=== PATIENT | male | born 1980 | race Caucasian/White ===

== ENCOUNTER 2024-06-10 09:38 | Emergency (ER) | payer OTHER, SELFPAY ==
[2024-06-10] VITALS (7 sets, daily range): BP systolic 143–195; BP diastolic 86–115; PULSE 97–108; RESP 10–26; TEMP 36.8; O2SAT 93–98
[2024-06-10 10:10] LABS: Glucose Point of Care 264 mg/dl (65-105)
--- NOTE | 2024-06-10 12:23 | ECG_ITS ---
Test Date: 2024-06-10 12:50:26 Measurements Intervals [place] Rate: 100 P: 43 TN: 135 QRS: -6 QRSD: 115 T: 54 QT: 362 QTc: 468 Interpretive Statements SINUS TACHYCARDIA POSSIBLE LEFT ATRIAL ENLARGEMENT [-0.1mV P-WAVE IN V1/V2] ANTEROSEPTAL MYOCARDIAL INFARCTION , OF INDETERMINATE AGE [40+ ms Q WAVE IN V1-V4] No previous ECG available for comparison Electronically Signed On 06-10-2024 18:45:04 [employer] by Ezequiel Keller M.D.
[2024-06-10] MEDS: ONDANSETRON INJ 4 MG/2 ML VIAL IV PUSH (12:29)
[2024-06-10] MEDS: SODIUM CHLORIDE 0.9% IV 1,000 ML 999 ML IV CONT (12:29)
[2024-06-10 12:33] LABS: Basophils Percent Auto 0.6 % (0.2-1.2); Eosinophils Percent Auto 0.3 % (0-4.4); Hematocrit 42.1 % (42.0-52.0); Hemoglobin 14.7 g/dL (14.0-18.0); Immature Granulocyte Absolute 0.01 K/mm3 (0.00-0.031); Immature Granulocyte Percent A 0.3 % (0-0.5); Lymphocytes Percent Auto 30.9 % (18.3-44.2); Mean Corpuscular HGB Conc 34.9 g/dl (32-36); Mean Corpuscular Hemoglobin 35.4 pg (26-34); Mean Corpuscular Volume 101.4 fl (80-100); Mean Platelet Volume 10.1 fl (7.4-10.4); Monocytes Absolute Auto 0.2 K/mm3 (0.1-0.6); Monocytes Percent Auto 4.9 % (2.6-8.5); Platelet Count Result 125 k/mm3 (150-375); Red Blood Count 4.15 M/mm3 (4.6-6.20); Red Cell Distribution Width 14.6 % (11.5-14.5); White Blood Count 3.2 K/mm3 (4.5-10.0)
[2024-06-10 12:42] LABS: Ethanol 278 mg/dL (<10)
[2024-06-10 12:42] LABS: Add Urine Microscopic? YES; Appearance Urine Clear (Clear); Bacteria Urine None Seen /hpf; Bilirubin Urine Negative (Negative); Blood Urine Negative (Negative); Color Urine Yellow (Yellow); Glucose Urine UA Negative (Negative); Ketones Urine 1+ mg/dL (Negative); Leukocyte Esterase Ur Negative LEU/UL (Negative); Nitrate Urine Negative (Negative); Non Pathogenic Casts 0-2; Protein Urine 3+ mg/dL (Negative); RBC Urine 0-2 /hpf (0-2); Specific Grav Ur 1.019 (1.001-1.035); Squamous Epithelial Cell Urine None Seen /hpf (Few); WBC Urine 0-5 /hpf (0-3)
[2024-06-10 12:43] LABS: Alanine Aminotransferase 279 U/L (6-50); Albumin Level 5.3 g/dL (3.5-5.1); Alkaline Phosphatase 90 U/L (38-126); Anion Gap 16 mmol/L (4-12); Aspartate Amino Transferase 324 U/L (17-59); Bilirubin,Total 1.6 mg/dL (0.2-1.3); Blood Urea Nitrogen 16 mg/dL (9-20); Calcium 9.5 mg/dL (8.4-10.2); Carbon Dioxide 23 mmol/L (22-30); Chloride 96 mmol/L (98-107); Estimated CRCL calculation 134 ml/min; Estimated Glomerular Filt Rate > 60; Glucose 210 mg/dL (65-110); Potassium 4.1 mmol/L (3.4-5.0); Sodium 135 mmol/L (137-145)
[2024-06-10 12:46] LABS: Lipase 267 U/L (23-300); Phosphorus 3.5 mg/dL (2.5-4.5)
[2024-06-10 12:47] LABS: Prothrombin Time 13.3 Seconds (11.1-14.7)
[2024-06-10 12:56] LABS: Amphetamine Screen Urine Negative (Negative); Barbiturate Screen Urine Negative (Negative); Benzodiazepines Screen Urine Negative (Negative); Cannabinoid Screen Urine Positive (Negative); Cocaine Screen Urine Negative (Negative); Methadone Screen Urine Negative (Negative); Opiate Screen Urine Negative (Negative); Phencyclidine Screen Urine Negative (Negative)
--- OUTSIDE RECORDS SUMMARY | 2024-06-10 13:23 | XMS_ITS | Continuity of Care Document ---
Author Organization [facility] Address [address] [place] [address] [place] [address] Phone Care Team Providers Care Senior Service Technician Name Role Phone Cj Guthrie MD Unavailable Unavailable Allergies, Adverse Reactions, Alerts Substance Reaction Status Criticality No Known Allergies Active No Inform ation Medications Medication Instructions Dosage Effective Dates (start - stop) Status Comments Paxil 20 mg tablet take 1 tablet by oral route every day 20 MG - Active Xanax 0.25 mg tablet take 1 tablet by oral route 2 times every day as needed 0.25 MG - Active PRN for anxiety, avoid driving or operate machines Adderall XR 30 mg capsule,extended release take 1 capsule by oral route every day in the morning upon awakening 30 MG - Active Adderall 30 mg tablet take 1 tablet by oral route around 3 pm - Active Procedures Procedure Date OFFICE/OUTPATIENT VISIT, [facility] Advance Directives Directive Yes / No Effective Date File Name No Information Encounters Encounter Description Practice Location Reason(s) For Visit Diagnoses Date Provider Providers Copied on Encounter OFFICE/OUTPA TIENT VISIT, [facility], [email or web address] [place], [address], tel:[phone] [facility] anxiety1 (chief complaint) ADD (chief complaint) HTN (chief complaint) Essential (primary) hypertensionGeneral ized Anxiety DisorderAttention deficit [address] [place], [address]. tel:[phone] Family History Family Member Type Diagnosis Age At Onset Mother Problem of brain CA 36 Father Problem Afib 72 Brother Problem ADD/ADHD Payers Payer name Insurance type Covered republican ID Chrissy christiansen(s) No Information Social History Type Description Quantity Date Captured Comments Alcohol Use Details beer 2-5 Drinks weekly Caffeine Use Details Unknown Tobacco Use Status Ex-cigarette smoker Smoking Status Current some day smoker Smoking Tobacco Use Details Cigar: Age Started: 36
Cigarette: Age Started: 15, Age Stopped: 36, Years Used 21 Cigar: No Details Available
Cigar ette: 1 Packs per day, Pack Year: 21 Sex Male Vital Signs Date / Time: Height Weight BMI Pulse Rate Blood Pressure Temperature Respiratory Rate Body Surface Area Head Circumference BMI percentile Pulse Ox Inhaled Ox 4:34 PM 73.00 in 212.40 lbs 28.0 2 kg/m eter (2) 73 /min 175/105 mm[Hg] 98.3 F 16 /min Chief Complaint And Reason For Visit From encounter dated '09/01/2022 16:34'. anxiety1 (chief complaint). Description: Pt has chronic anxiety and depression Pt takes paxil and xanax PRN and doing ok Pt denies any suicidal or homicidal thought Pt denies any crying spells ADD (chief complaint). Description: Pt has ADD Pt is seeing doctor in [place] but is too far and he takes adderall XR 30 mg in Am and 30 mg IR around afternoon Pt wants to find a doctor that close to home. Pt also had some verbal altercation with his previous MD regarding issues of adderall refill. Pt states that he was out of town and had some difficulty getting his adderall refilled by his previous MD and he was unhappy about that HTN (chief complaint). Description: Pt has HTN Pt states that his bp is around 130/70 at home Pt denies any chest pain or headache. he states that he has white coat syndrome Plan Of Treatment Date Type Action Status No Information History Of Present Illness Encounter Date Complaint History Of Prese nt Illness HTN Pt has HTN Pt st ates that his bp is around 130/70 at home Pt denies any chest pain or headache. he states that he has white coat syndrome ADD Pt has ADD Pt is seeing doctor in [place] but is too far and he takes adderall XR 30 mg in Am and 30 mg IR around afternoon Pt wants to find a doctor that close to home. Pt also had some verbal altercation with his previous MD regarding issues of adderall refill. Pt states that he was out of town and had some difficulty getting his adderall refilled by his previous MD and he was unhappy about that anxiety1 Pt has chronic a nxiety and depression Pt takes paxil and xanax PRN and doing ok Pt denies any suicidal or homicidal thought Pt denies any crying spells Instructions Date Instruction Additional Infor mation No Information Assessments Type Assessment Date assessment Essential (primary) hypertension assessment Generalized Anxiety Disorder Aug assessment Attention deficit Mental Status Date Cognitive Assessment Orientation - [place] ed to time, place, person, situation.
--- NOTE | 2024-06-10 13:42 | ED_ITS ---
HPI - General Adult General Chief complaint: Alcohol Stated complaint: ETOH and drug use, weakness Time Seen by Provider: 06/10/24 12:08 History of Present Illness HPI narrative: Patient is a 43-year-old male who presents ER for evaluation after feeling weird after drinking alcohol and using drugs. He has been purchasing Adderall off the Internet he reports his mouth today slight Plastic. He reports he had several shots of vodka this morning. Reports in a typical day he will drink a pt of vodka, 1-2 bottles of lying, and then 10-15 malt liquor or [place] drinks. He was vomiting this morning. EMS arrived and blood sugar was low. Patient was able to drink orange juice need a sandwich. Patient reports occasionally he will feel palpitations in his chest but no chest pain. Reports mild anxiety. Family concerned he may be withdrawing. Patient is unable to remember last time he went multiple days without drinking alcohol. Related Data Allergies Allergy/AdvReac Type Severity Reaction Status Date / Time No Known Allergies Allergy Verified 06/10/24 12:02 Review of Systems 2 Review of Systems: All systems reviewed & are unremarkable except as noted in HPI and below Constitutional: Constitutional: Reports no additional constitutional complaints ENT: Reports system reviewed and no additional complaints, except as documented Cardiovascular: Cardiovascular: Reports no additional cardiovascular complaints ( Palpitations) Respiratory: Respiratory: Reports no additional respiratory complaints Psychiatric: Psychiatric: Reports anxiety PMFSH Past Medical History Medical History (Updated 06/10/24 @ 14:27 by Renaldo Rae MD) Depression Anxiety Surgical History Surgical History (Updated 06/10/24 @ 13:46 by Renaldo Rae MD) No pertinent past surgical history Social History Social History (Updated 06/10/24 @ 13:47 by Renaldo Rae MD) Alcohol use details: 1 pint, 1-2 bottles of wine, and 10-15 malt liquor/seltzer cans a day. Exam 2 Narrative: GENERAL: intoxicated-appearing, well-nourished, and in no acute distress. HEAD: Normocephalic, atraumatic. ENT: Mucous membranes moist. CHEST: Clear to auscultation. No respiratory distress. HEART: tachycardic and regular. Normal peripheral pulses. ABDOMEN: Soft, nontender, nondistended. EXTREMITIES: Normal range of motion. No edema. SKIN: Warm, dry, no rash. NEURO: Alert and oriented x3. PSYCH: Normal mood and affect. Course Course Emergency Course: 1357: Patient is wanting to leave the ER. Discussed results including elevated transaminases from alcohol abuse. Troponin is pending. Patient agreeable to wait for troponin to return before he is going to depart. He is becoming a bit anxious. Tachycardia resolved with IV fluid. Patient is intoxicated. 1425: Troponin negative. Early repolarization abnormality on EKG. Received etoh abuse resources. D/c. Vital Signs Vital signs: Vital Signs Temperature 98.2 F 06/10/24 10:09 Pulse Rate 98 06/10/24 10:09 Respiratory Rate 20 06/10/24 10:09 Blood Pressure 149/91 H 06/10/24 10:09 Pulse Oximetry 96 06/10/24 10:09 Oxygen Delivery Room Air 06/10/24 10:09 Temperature 98.2 F 06/10/24 10:09 Pulse Rate 97 06/10/24 13:37 Respiratory Rate 18 06/10/24 13:37 Blood Pressure 143/98 H 06/10/24 13:16 Pulse Oximetry 93 06/10/24 13:37 Oxygen Delivery Room Air 06/10/24 10:09 Medical Decision Making Vital Signs Vital Signs: Vital Signs Temperature 98.2 F 06/10/24 10:09 Pulse Rate 98 06/10/24 10:09 Respiratory Rate 20 06/10/24 10:09 Blood Pressure 149/91 H 06/10/24 10:09 Pulse Oximetry 96 06/10/24 10:09 Oxygen Delivery Room Air 06/10/24 10:09 Temperature 98.2 F 06/10/24 10:09 Pulse Rate 97 06/10/24 13:37 Respiratory Rate 18 06/10/24 13:37 Blood Pressure 143/98 H 06/10/24 13:16 Pulse Oximetry 93 06/10/24 13:37 Oxygen Delivery Room Air 06/10/24 10:09 Lab Data 06/10/24 12:23 06/10/24 12:23 Labs: Lab Results 06/10/24 06/10/24 06/10/24 Range/Units 10:04 12:22 12:23 WBC 3.2 L (4.5-10.0) K/mm3 RBC 4.15 L (4.6-6.20) M/mm3 Hgb 14.7 (14.0-18.0) g/dL Hct 42.1 (42.0-52.0) % MCV 101.4 H (80-100) fl MCH 35.4 H (26-34) pg MCHC 34.9 (32-36) g/dl RDW 14.6 H (11.5-14.5) % Plt Count 125 L (150-375) k/mm3 MPV 10.1 (7.4-10.4) fl Immature Gran % (Auto) 0.3 (0-0.5) % Neut % (Auto) 63.0 (45.5-73.1) % Lymph % (Auto) 30.9 (18.3-44.2) % [place] % (Auto) 4.9 (2.6-8.5) % Eos % (Auto) 0.3 (0-4.4) % Baso % (Auto) 0.6 (0.2-1.2) % Lymph # (Auto) 1.00 (0.9-3.2) K/mm3 [place] # (Auto) 0.2 (0.1-0.6) K/mm3 Eos # (Auto) 0.0 (0-0.3) K/mm3 Baso # (Auto) 0.0 (0.0-0.1) K/mm3 Abs Immat Gran (auto) 0.01 (0.00-0.031) K/mm3 Absolute Neuts (auto) 2.0 (1.3-6.7) K/mm3 Absolute Nucleated RBC 0.000 (0.0-0.012) K/mm3 Nucleated RBC % 0.0 (0.0-0.2) % % Immature Plt Fraction 6.0 (0.9-11.2) % PT 13.3 (11.1-14.7) Seconds INR 1.0 Sodium 135 L (137-145) mmol/L Potassium 4.1 (3.4-5.0) mmol/L Chloride 96 L (98-107) mmol/L Carbon Dioxide 23 (22-30) mmol/L Anion Gap 16 H (4-12) mmol/L BUN 16 (9-20) mg/dL Creatinine 0.80 (0.7-1.3) mg/dL Estim Creat Clear Calc 134 ml/min Estimated GFR > 60 (59 - ) Glucose 210 H (65-110) mg/dL POC Capillary Glucose 264 H (65-105) mg/dl Calcium 9.5 (8.4-10.2) mg/dL Phosphorus (2.5-4.5) mg/dL Magnesium 2.0 (1.6-2.3) mg/dL Total Bilirubin 1.6 H (0.2-1.3) mg/dL AST 324 H (17-59) U/L ALT 279 H (6-50) U/L Alkaline Phosphatase 90 (38-126) U/L Troponin I < 0.012 (0.000-0.034) ng/mL Total Protein 9.0 H (6.3-8.2) g/dL Albumin 5.3 H (3.5-5.1) g/dL Lipase (23-300) U/L Urine Color (Yellow) Urine Appearance (Clear) Urine pH (5.0-9.0) Ur Specific [place] (1.001-1.035) Urine Protein (Negative) mg/dL Urine Glucose (UA) (Negative) mg/dL Urine Ketones (Negative) mg/dL Ur Blood (Man) (Negative) Urine Nitrate (Negative) Urine Bilirubin (Negative) Urine Urobilinogen (<2.0) mg/dL Leukocyte Esterase Rfl (Negative) JEANA/UL Urine RBC (0-2) /hpf Urine WBC (0-3) /hpf Ur Squamous Epith Cells (Few) /hpf Urine Bacteria /hpf Urine Casts Urine Opiates Screen (Negative) Urine Methadone Screen (Negative) Ur Barbiturates Screen (Negative) Ur Phencyclidine Scrn (Negative) Ur Amphetamine Screen (Negative) U Benzodiazepines Scrn (Negative) Urine Cocaine Screen (Negative) U Cannabinoids Screen (Negative) Ethyl Alcohol (<10) mg/dL 06/10/24 06/10/24 Range/Units 12:25 12:27 WBC (4.5-10.0) K/mm3 RBC (4.6-6.20) M/mm3 Hgb (14.0-18.0) g/dL Hct (42.0-52.0) % MCV (80-100) fl MCH (26-34) pg MCHC (32-36) g/dl RDW (11.5-14.5) % Plt Count (150-375) k/mm3 MPV (7.4-10.4) fl Immature Gran % (Auto) (0-0.5) % Neut % (Auto) (45.5-73.1) % Lymph % (Auto) (18.3-44.2) % Benzie % (Auto) (2.6-8.5) % Eos % (Auto) (0-4.4) % Baso % (Auto) (0.2-1.2) % Lymph # (Auto) (0.9-3.2) K/mm3 [place] # (Auto) (0.1-0.6) K/mm3 Eos # (Auto) (0-0.3) K/mm3 Baso # (Auto) (0.0-0.1) K/mm3 Abs Immat Gran (auto) (0.00-0.031) K/mm3 Absolute Neuts (auto) (1.3-6.7) K/mm3 Absolute Nucleated RBC (0.0-0.012) K/mm3 Nucleated RBC % (0.0-0.2) % % Immature Plt Fraction (0.9-11.2) % PT (11.1-14.7) Seconds INR Sodium (137-145) mmol/L Potassium (3.4-5.0) mmol/L Chloride (98-107) mmol/L Carbon Dioxide (22-30) mmol/L Anion Gap (4-12) mmol/L BUN (9-20) mg/dL Creatinine (0.7-1.3) mg/dL Estim Creat Clear Calc ml/min Estimated GFR (59 - ) Glucose (65-110) mg/dL POC Capillary Glucose (65-105) mg/dl Calcium (8.4-10.2) mg/dL Phosphorus 3.5 (2.5-4.5) mg/dL Magnesium (1.6-2.3) mg/dL Total Bilirubin (0.2-1.3) mg/dL AST (17-59) U/L ALT (6-50) U/L Alkaline Phosphatase (38-126) U/L Troponin I (0.000-0.034) ng/mL Total Protein (6.3-8.2) g/dL Albumin (3.5-5.1) g/dL Lipase 267 (23-300) U/L Urine Color Yellow (Yellow) Urine Appearance Clear (Clear) Urine pH 6.0 (5.0-9.0) Ur Specific [place] 1.019 (1.001-1.035) Urine Protein 3+ H (Negative) mg/dL Urine Glucose (UA) Negative (Negative) mg/dL Urine Ketones 1+ H (Negative) mg/dL Ur Blood (Man) Negative (Negative) Urine Nitrate Negative (Negative) Urine Bilirubin Negative (Negative) Urine Urobilinogen 1.0 (<2.0) mg/dL Leukocyte Esterase Rfl Negative (Negative) JEANA/UL Urine RBC 0-2 (0-2) /hpf Urine WBC 0-5 (0-3) /hpf Ur Squamous Epith Cells None seen (Few) /hpf Urine Bacteria None seen /hpf Urine Casts 0-2 Urine Opiates Screen Negative (Negative) Urine Methadone Screen Negative (Negative) Ur Barbiturates Screen Negative (Negative) Ur Phencyclidine Scrn Negative (Negative) Ur Amphetamine Screen Negative (Negative) U Benzodiazepines Scrn Negative (Negative) Urine Cocaine Screen Negative (Negative) U Cannabinoids Screen Positive A (Negative) Ethyl Alcohol 278 (<10) mg/dL ECG Data EKG #1: ECG completion date: 06/10/24 ECG completion time: 12:50 EKG Interpretation: tachycardia (100), sinus rhythm, no ectopy, non- specific ST changes (early repolarization), normal QRS, normal QT and NL axis Discharge Plan Discharge Clinical Impression: Alcoholic intoxication Patient Disposition: Home, Self-Care Condition: Stable Instructions: Antibiotic Form, Alcohol Intoxication (ED) Additional Instructions: If you do decide to quit drinking and are experiencing severe withdrawal symptoms please return to the ER. Additionally return the ER should you develop symptoms of a medical emergency such as chest pain, uncontrolled vomiting, or you have a seizure. Patient Language: Divehi Follow-up/Referrals: Steven Catalan MD [Physician] - 1 Week
--- NOTE | 2024-06-10 14:06 | PC.NURSE ---
Patient refusing to lay in bed with monitor on. Patient states he is wanting to leave. Provider spoke with patient about waiting until we get more labs back. Patient agreed to this, but will not let this RN hook him back up. Patient sitting in room in the chair with family
[2024-06-10 14:20] LABS: Troponin I < 0.012 ng/mL (0.000-0.034)
== END 2024-06-10 14:50 | disposition home or self-care (01) ==
PROVIDERS: Emergency Provider Emergency Medicine
DX: F10.129 Alcohol abuse with intoxication, unspecified (principal); Y90.8 Blood alcohol level of 240 mg/100 ml or more; R00.0 Tachycardia, unspecified; R94.31 Abnormal electrocardiogram [ECG] [EKG]
CPT/HCPCS: 36415; 80053; 80307; 81001; 82077; 82948; 83690; 83735; 84100; 84484; 85025; 85055; 85610; 93005; 96361; 96374; 96375; 99284; J2405; J7030